=== PATIENT | male | born 1975 | race Two or more races ===

== ENCOUNTER 2017-07-24 00:05 | Inpatient (IN) | payer MEDICAID, OTHER ==
[~2017-07-24] VITALS: Ht 188 cm; Wt 87.2 kg
[2017-07-24 03:22] LABS: Basophils # (auto) 0.1 uL; Basophils % (auto) 0.7 % (0.0-2.0); Eosinophils # (auto) 0.1 uL; Eosinophils % (auto) 0.6 % (0.0-7.0); Hematocrit 46.2 % (41.0-53.0); Hemoglobin 15.7 g/dL (13.5-17.5); Lymphocytes # (auto) 1.1 uL; Lymphocytes % (auto) 11.2 % (10.0-50.0); Mean Corpuscular Hemoglobin 29.9 pg (28.0-32.0); Mean Corpuscular Hgb Conc. 33.9 g/dL (32.0-36.0); Mean Corpuscular Volume 88.2 fL (80.0-100.0); Monocytes # (auto) 0.8 uL; Monocytes % (auto) 8.3 % (0.0-12.0); Neutrophils # (auto) 7.5 uL; Neutrophils % (auto) 79.2 % (37.0-80.0); Platelet Count (auto) 254 10^3/uL (140-450); Red Blood Cells 5.24 10^6/uL (4.5-5.90); Red Cell Distribution Width 12.5 % (11.8-14.3); White Blood Cell 9.4 10^3/uL (4.4-10.8)
[2017-07-24] MEDS ORDERED: SODIUM CHLORIDE 0.9% 1,000 ML IV ONE ×2 (03:35→04:45)
[2017-07-24 03:38] LABS: Albumin 3.6 g/dL (3.4-5.0); BUN/Creatinine Ratio 16.8; Bilirubin, Total 1.1 mg/dL (0.2-1.0); Calcium 8.7 mg/dL (8.5-10.1); Potassium 4.2 mmol/L (3.5-5.1); Total Protein 8.1 g/dL (6.4-8.2)
[2017-07-24 03:43] LABS: Urine Bacteria NONE SEEN /hpf (None Seen); Urine Blood Negative /uL (Negative); Urine Specific Gravity 1.029 (1.001-1.035); Urine WBC <1 /hpf (0 - 3)
[2017-07-24] MEDS ORDERED: CLINDAMYCIN 900MG IV 50 ML IV ONE (03:45)
[2017-07-24] MEDS ORDERED: KETOROLAC TROMETH 30 MG/ML 1ML VIAL IV ONE (03:45)
[2017-07-24] MEDS ORDERED: InsuLIN REG 1unit/0.01ml Soln (100units/ml) IV ONE (03:45)
[2017-07-24 04:00] LABS: Alcohol, Urine < 3.0 mg/dL (0-5); Amphetamine Screen, Urine POSITIVE (NEGATIVE); Barbiturate Scree,Urine NEGATIVE (NEGATIVE); Benzodiazephine Screen, Urine NEGATIVE (NEGATIVE); Cannabinoid Screen, Urine POSITIVE (NEGATIVE); Cocaine Screen, Urine NEGATIVE (NEGATIVE); Opiate Scree,Urine NEGATIVE (NEGATIVE); Phencyclidine Screen, Urine NEGATIVE (NEGATIVE)
[2017-07-24 04:10] LABS: CRP High Sensitivity 10.9 mg/dL (< 0.3); Magnesium 2.3 mg/dL (1.6-2.6)
[2017-07-24 04:13] LABS: INR 0.87 (0.9-1.15); Partial Thromboplastin Time 29.6 sec (23.78-33.04); Prothrombin Time 9.4 sec (9.27-12.13)
[2017-07-24] MEDS ORDERED: ONDANSETRON HCL 4 MG/2 ML VIAL IV PRN (07:00)
[2017-07-24] MEDS ORDERED: VANCOMYCIN PER PHARMACY 0 MG IV SCH ×2 (07:00→13:45)
[2017-07-24] MEDS ORDERED: ACETAMINOPHEN 325 MG TAB PO PRN (07:00)
[2017-07-24] MEDS ORDERED: TEMAZEPAM 15 MG CAP PO PRN (07:00)
[2017-07-24] MEDS ORDERED: DEXTROSE (50%) 50ML SYRG IV PRN (07:00)
[2017-07-24] MEDS ORDERED: VANCOMYCIN 1,500 MG in D5W 5% 250 ML IV ONE (08:00)
[2017-07-24] MEDS: ACCU-CHEK COMFORT CURVE STRIP VI SCH ×4 (08:08→20:00)
[2017-07-24] MEDS: SODIUM CHLORIDE 0.9% 1,000 ML IV SCH ×2 (08:08→17:13)
[2017-07-24] MEDS: InsuLIN REG 1unit/0.01ml Soln (100units/ml) SC SCH ×4 (08:14→20:31)
[2017-07-24] MEDS ORDERED: cefTRIAXone 1GM/10ml IVPUSH 10 ML IV SCH (09:00)
[2017-07-24] MEDS: ENOXAPARIN SOD 40 MG/0.4 ML SYRINGE SC SCH (10:05)
[2017-07-24] MEDS: KETOROLAC TROMETH 30 MG/ML 1ML VIAL IV PRN ×2 (12:02→20:30)
[2017-07-24] MEDS ORDERED: LORazepam 2MG/ML-1ML VIAL IV PRN (12:30)
[2017-07-24] MEDS ORDERED: LABETALOL HCL 5 MG/ML ML 20ML VIAL IV PRN (12:30)
[2017-07-24] MEDS: PIPERACILLIN-TAZOB 3.375GM 100 ML IV SCH ×2 (13:04→18:46)
[2017-07-24] MEDS: CLINDAMYCIN 900MG IV 50 ML IV SCH ×2 (14:00→22:13)
[2017-07-24] MEDS: HYDROcodone-ACET 5/325MG TAB PO PRN (17:15)
[2017-07-24 17:21] VITALS: BP 136/92
[2017-07-24 18:23] VITALS: BP 137/77
[2017-07-24] MEDS: VANCOMYCIN 1,250 MG in D5W 5% 250 ML IV SCH (20:45)
[2017-07-24] MEDS ORDERED: VANCOMYCIN 1GM/250ML 250 ML IV SCH (21:00)
[2017-07-24 22:00] VITALS: BP 138/83
[2017-07-25] MEDS: ACCU-CHEK COMFORT CURVE STRIP VI SCH ×4 (00:35→17:39)
[2017-07-25] MEDS: InsuLIN REG 1unit/0.01ml Soln (100units/ml) SC SCH ×4 (00:36→17:40)
[2017-07-25] MEDS: PIPERACILLIN-TAZOB 3.375GM 100 ML IV SCH ×4 (00:36→18:18)
[2017-07-25] MEDS: HYDROcodone-ACET 5/325MG TAB PO PRN (00:37)
[2017-07-25] MEDS: SODIUM CHLORIDE 0.9% 1,000 ML IV SCH ×2 (03:00→13:00)
[2017-07-25] MEDS: KETOROLAC TROMETH 30 MG/ML 1ML VIAL IV PRN ×3 (04:14→17:41)
[2017-07-25 05:10] VITALS: BP 134/82
[2017-07-25 06:27] LABS: Basophils # (auto) 0 uL; Basophils % (auto) 0.4 % (0.0-2.0); Eosinophils # (auto) 0.1 uL; Hematocrit 42.8 % (41.0-53.0); Hemoglobin 14.6 g/dL (13.5-17.5); Lymphocytes # (auto) 0.9 uL; Lymphocytes % (auto) 12.1 % (10.0-50.0); Mean Corpuscular Hgb Conc. 34.1 g/dL (32.0-36.0); Mean Corpuscular Volume 87.8 fL (80.0-100.0); Monocytes # (auto) 0.6 uL; Monocytes % (auto) 8.4 % (0.0-12.0); Neutrophils # (auto) 5.9 uL; Neutrophils % (auto) 78.1 % (37.0-80.0); Platelet Count (auto) 263 10^3/uL (140-450); Red Blood Cells 4.87 10^6/uL (4.5-5.90); Red Cell Distribution Width 12.4 % (11.8-14.3); White Blood Cell 7.6 10^3/uL (4.4-10.8)
[2017-07-25 06:43] LABS: Albumin 2.8 g/dL (3.4-5.0); Calcium 8.1 mg/dL (8.5-10.1); Potassium 3.9 mmol/L (3.5-5.1)
[2017-07-25 06:44] LABS: BUN/Creatinine Ratio 24.6
[2017-07-25 06:47] LABS: Total Protein 6.7 g/dL (6.4-8.2)
[2017-07-25] MEDS: CLINDAMYCIN 900MG IV 50 ML IV SCH ×2 (06:48→15:51)
[2017-07-25] MEDS: HYDROcodone-ACET 10/325MG TAB PO PRN ×4 (08:00→18:50)
[2017-07-25 08:12] VITALS: BP 144/72
[2017-07-25] MEDS: VANCOMYCIN 1,250 MG in D5W 5% 250 ML IV SCH (09:26)
[2017-07-25] MEDS ORDERED: cefTRIAXone 1GM/10ml IVPUSH 10 ML IV SCH (11:00)
[2017-07-25] MEDS: ENOXAPARIN SOD 40 MG/0.4 ML SYRINGE SC SCH (11:29)
[2017-07-25 12:30] VITALS: BP 136/85
[2017-07-25 16:16] VITALS: BP 135/80
== END 2017-07-25 19:20 | disposition left against medical advice (07) | DRG 383 ==
LOC: ER 00:07 → OVERFLOW 00:08 → WEST WING 14:38 → TELE-WESTW 07-25 05:20
PROVIDERS: ADMIT Nurse Practitioner; ATTEND Internal Medicine
DX: L03.114 Cellulitis of left upper limb (principal); E11.65 Type 2 diabetes mellitus with hyperglycemia; M72.9 Fibroblastic disorder, unspecified; Z53.21 Procedure and treatment not carried out due to patient leaving prior to being seen by health care provider; F19.10 Other psychoactive substance abuse, uncomplicated; Z88.8 Allergy status to other drugs, medicaments and biological substances
CPT/HCPCS: 36415; 36600; 71045; 73130; 73200; 80053; 80307; 81001; 82010; 82805; 82962; 83036; 83605; 83735; 85025; 85610; 85730; 86141; 87040; 93005; 94761; 96361; 96365; 96375; J1815; J1885; J2405; J2543; J3490; J7060

== ENCOUNTER 2021-05-15 23:54 | Inpatient (IN) | payer OTHER ==
[~2021-05-15] VITALS: Ht 170.2 cm; Wt 103.5 kg
[2021-05-16 01:03] LABS: Eosinophils # (auto) 0 10 ^3/uL (0-0.8); Eosinophils % (auto) 0.1 % (0.0-7.0); Lymphocytes # (auto) 1.5 10 ^3/uL (0.4-5.4)
[2021-05-16 01:04] LABS: Basophils # (auto) 0 10 ^3/uL (0-0.2); Basophils % (auto) 0.2 % (0.0-2.0); Hematocrit 33.2 % (41.0-53.0); Lymphocytes % (auto) 6.7 % (10.0-50.0); Mean Corpuscular Hemoglobin 27.4 pg (28.0-32.0); Mean Corpuscular Volume 83.1 fL (80.0-100.0); Monocytes # (auto) 1.7 10 ^3/uL (0-1.3); Monocytes % (auto) 7.7 % (0.0-12.0); Neutrophils # (auto) 18.7 10 ^3/uL (1.6-8.6); Neutrophils % (auto) 85.3 % (37.0-80.0); Red Cell Distribution Width 13.1 % (11.8-14.3); White Blood Cell 21.9 10^3/uL (4.4-10.8)
[2021-05-16 01:16] LABS: Albumin 1.8 g/dL (3.4-5.0); Calcium 8.5 mg/dL (8.5-10.1)
[2021-05-16 01:18] LABS: BUN/Creatinine Ratio 30.1
[2021-05-16 01:20] LABS: Bilirubin, Total 0.4 mg/dL (0.2-1.0); Total Protein 8.2 g/dL (6.4-8.2)
[2021-05-16 01:30] LABS: INR 1.13 (0.9-1.15)
[2021-05-16] MEDS ORDERED: PIPERACILLIN-TAZOB 3.375GM 100 ML IV ONE (01:30)
[2021-05-16] MEDS ORDERED: MORPHINE SULFATE 4 MG/ML SYR/VIAL IV ONE (01:30)
[2021-05-16] MEDS ORDERED: SODIUM CHLORIDE 0.9% 1,000 ML IV ONE (01:30)
[2021-05-16] MEDS ORDERED: ONDANSETRON HCL 4 MG/2 ML VIAL IV ONE (02:00)
[2021-05-16] MEDS ORDERED: HYDROcodone-ACET 5/325MG TAB PO PRN (07:00)
[2021-05-16] MEDS ORDERED: ONDANSETRON HCL 4 MG/2 ML VIAL IV PRN (07:00)
[2021-05-16] MEDS ORDERED: DEXTROSE (50%) 50ML SYRG IV PRN ×2 (07:00→14:30)
[2021-05-16] MEDS ORDERED: VANCOMYCIN PER PHARMACY 0 MG IV SCH (07:00)
[2021-05-16] MEDS ORDERED: HYDROmorphone HCL 2 MG/ML VL IV ONE (07:30)
[2021-05-16 07:47] LABS: Hematocrit 27.9 % (41.0-53.0); Hemoglobin 9.8 g/dL (13.5-17.5)
[2021-05-16] MEDS: PIPERACILLIN-TAZOB 3.375GM 100 ML IV SCH ×3 (09:15→20:12)
[2021-05-16] MEDS: PANTOPRAZOLE 40 MG/10 ML VIAL INJ IV SCH (09:15)
[2021-05-16 09:54] VITALS: BP 123/71
[2021-05-16 10:11] VITALS: BP 123/71
[2021-05-16] MEDS ORDERED: InsuLIN REG 1unit/0.01ml Soln (100units/ml) SC SCH (12:00)
[2021-05-16] MEDS ORDERED: ACCU-CHEK COMFORT CURVE STRIP VI SCH (12:00)
[2021-05-16] MEDS: VANCOMYCIN 1GM/250ML 250 ML IV SCH ×2 (12:07→20:44)
[2021-05-16 12:49] VITALS: BP 112/67
[2021-05-16] MEDS ORDERED: INSULIN LANTUS (GLARGINE) 1 /0.01ml (100units/ml) SC ONE (14:30)
[2021-05-16] MEDS ORDERED: levoFLOXacin 750MG 150 ML IV ONE (14:30)
[2021-05-16] MEDS: SODIUM CHLORIDE 0.9% 1,000 ML IV SCH (14:31)
[2021-05-16 17:17] VITALS: BP 121/74
[2021-05-16] MEDS: SUCRALFATE 1 GM/10 ML ORAL SUSP PO SCH ×2 (17:19→22:55)
[2021-05-16] MEDS: ACCU-CHEK COMFORT CURVE STRIP VI SCH ×2 (18:14→23:00)
[2021-05-16] MEDS: InsuLIN REG 1unit/0.01ml Soln (100units/ml) SC SCH ×2 (18:20→23:00)
[2021-05-16 22:00] VITALS: BP 144/82
[2021-05-16] MEDS: INSULIN LANTUS (GLARGINE) 1 /0.01ml (100units/ml) SC SCH (22:59)
[2021-05-16 23:30] LABS: Urine Bacteria FEW /hpf (None Seen); Urine Blood 1+ /uL (Negative); Urine Specific Gravity 1.018 (1.001-1.035); Urine WBC 4 /hpf (0 - 3)
[2021-05-16 23:44] LABS: Alcohol, Urine < 3.0 mg/dL (0-10); Cannabinoid Screen, Urine POSITIVE (NEGATIVE)
[2021-05-16 23:52] LABS: Amphetamine Screen, Urine POSITIVE (NEGATIVE); Barbiturate Scree,Urine NEGATIVE (NEGATIVE); Benzodiazephine Screen, Urine NEGATIVE (NEGATIVE); Cocaine Screen, Urine NEGATIVE (NEGATIVE); Opiate Scree,Urine POSITIVE (NEGATIVE); Phencyclidine Screen, Urine NEGATIVE (NEGATIVE)
[2021-05-17] MEDS: PIPERACILLIN-TAZOB 3.375GM 100 ML IV SCH ×4 (02:11→20:08)
[2021-05-17] MEDS: SODIUM CHLORIDE 0.9% 1,000 ML IV SCH ×2 (03:50→20:00)
[2021-05-17 05:00] VITALS: BP 125/71
[2021-05-17] MEDS: InsuLIN REG 1unit/0.01ml Soln (100units/ml) SC SCH ×4 (05:20→22:52)
[2021-05-17] MEDS: ACCU-CHEK COMFORT CURVE STRIP VI SCH ×4 (05:20→22:52)
[2021-05-17 05:35] LABS: Basophils # (auto) 0 10 ^3/uL (0-0.2); Hemoglobin 9.5 g/dL (13.5-17.5); Mean Corpuscular Hemoglobin 27.9 pg (28.0-32.0)
[2021-05-17] MEDS: MORPHINE SULFATE 4 MG/ML SYR/VIAL IV PRN ×3 (05:38→20:09)
[2021-05-17 05:39] LABS: Basophils % (auto) 0.3 % (0.0-2.0); Eosinophils # (auto) 0.1 10 ^3/uL (0-0.8); Eosinophils % (auto) 0.4 % (0.0-7.0); Hematocrit 27.9 % (41.0-53.0); Lymphocytes # (auto) 1.3 10 ^3/uL (0.4-5.4); Lymphocytes % (auto) 7.9 % (10.0-50.0); Mean Corpuscular Hgb Conc. 33.9 g/dL (32.0-36.0); Mean Corpuscular Volume 82.2 fL (80.0-100.0); Monocytes # (auto) 1.4 10 ^3/uL (0-1.3); Monocytes % (auto) 8.4 % (0.0-12.0); Neutrophils # (auto) 13.7 10 ^3/uL (1.6-8.6); Red Cell Distribution Width 13.9 % (11.8-14.3); White Blood Cell 16.5 10^3/uL (4.4-10.8)
[2021-05-17] MEDS: SUCRALFATE 1 GM/10 ML ORAL SUSP PO SCH ×4 (05:40→22:51)
[2021-05-17 06:01] LABS: Potassium 3.9 mmol/L (3.5-5.1)
[2021-05-17 06:06] LABS: Albumin 1.4 g/dL (3.4-5.0); BUN/Creatinine Ratio 30.9; Calcium 8.3 mg/dL (8.5-10.1)
[2021-05-17 06:09] LABS: Bilirubin, Total 0.4 mg/dL (0.2-1.0); Total Protein 6.9 g/dL (6.4-8.2)
[2021-05-17] MEDS: VANCOMYCIN 1GM/250ML 250 ML IV SCH ×2 (06:25→20:14)
[2021-05-17 09:00] VITALS: BP 153/84
[2021-05-17] MEDS: PANTOPRAZOLE 40 MG/10 ML VIAL INJ IV SCH (10:00)
[2021-05-17] MEDS: INSULIN LANTUS (GLARGINE) 1 /0.01ml (100units/ml) SC SCH ×2 (10:00→22:51)
[2021-05-17] MEDS: levoFLOXacin 750MG 150 ML IV SCH (10:00)
[2021-05-17] MEDS ORDERED: ceFAZolin 1GM/50ML 100 ML IV ONE (10:08)
[2021-05-17] MEDS ORDERED: ceFAZolin 1GM VL ONE (10:21)
[2021-05-17] MEDS ORDERED: ACCU-CHEK COMFORT CURVE STRIP VI ONE (10:30)
[2021-05-17] MEDS ORDERED: METOCLOPRAMIDE HCL 5MG/ml INJ 2ml VIAL IV PRN (10:30)
[2021-05-17] MEDS ORDERED: HYDROmorphone HCL 2 MG/ML VL IV PRN (10:30)
[2021-05-17] MEDS ORDERED: MORPHINE SULFATE 4 MG/ML SYR/VIAL IV PRN (10:30)
[2021-05-17] MEDS ORDERED: fentaNYL CITRATE 100 MCG/2 ML VL ONE (10:38)
[2021-05-17] MEDS ORDERED: ONDANSETRON HCL 4 MG/2 ML VIAL ONE (10:39)
[2021-05-17] MEDS ORDERED: PROPOFOL 10 MG/ML 20 ML IV ONE (10:39)
[2021-05-17] MEDS ORDERED: SODIUM CHLORIDE LOCK 10 ML ONE (10:39)
[2021-05-17] MEDS ORDERED: MIDAZOLAM HCL 2MG/2ML 2ml VIAL (1mg/ml) ONE (10:39)
[2021-05-17] MEDS ORDERED: ROPIVACAINE 0.5% (5MG/ML) 20ML AMPULE IJ ONE (12:03)
[2021-05-17 16:30] VITALS: BP 152/87
[2021-05-17 22:00] VITALS: BP 114/68
[2021-05-18] MEDS: PIPERACILLIN-TAZOB 3.375GM 100 ML IV SCH ×4 (04:03→20:29)
[2021-05-18] MEDS: SODIUM CHLORIDE 0.9% 1,000 ML IV SCH ×2 (04:03→19:50)
[2021-05-18 05:00] VITALS: BP 121/79
[2021-05-18 05:41] LABS: Basophils # (auto) 0.1 10 ^3/uL (0-0.2); Eosinophils # (auto) 0 10 ^3/uL (0-0.8); Mean Corpuscular Hemoglobin 28.1 pg (28.0-32.0)
[2021-05-18 05:44] LABS: Basophils % (auto) 0.3 % (0.0-2.0); Eosinophils % (auto) 0.3 % (0.0-7.0); Hematocrit 26.3 % (41.0-53.0); Lymphocytes # (auto) 1.3 10 ^3/uL (0.4-5.4); Mean Corpuscular Hgb Conc. 34.1 g/dL (32.0-36.0); Mean Corpuscular Volume 82.4 fL (80.0-100.0); Monocytes # (auto) 1.4 10 ^3/uL (0-1.3); Monocytes % (auto) 8.8 % (0.0-12.0); Neutrophils # (auto) 13.6 10 ^3/uL (1.6-8.6); Neutrophils % (auto) 82.6 % (37.0-80.0); Nucleated Red Blood Cells % 0.4 %; Red Cell Distribution Width 13.2 % (11.8-14.3); White Blood Cell 16.4 10^3/uL (4.4-10.8)
[2021-05-18] MEDS: VANCOMYCIN 1GM/250ML 250 ML IV SCH ×2 (06:05→16:41)
[2021-05-18] MEDS: SUCRALFATE 1 GM/10 ML ORAL SUSP PO SCH ×4 (06:06→23:02)
[2021-05-18] MEDS: ACCU-CHEK COMFORT CURVE STRIP VI SCH ×4 (06:06→23:02)
[2021-05-18] MEDS: InsuLIN REG 1unit/0.01ml Soln (100units/ml) SC SCH ×4 (06:09→23:08)
[2021-05-18] MEDS: MORPHINE SULFATE 4 MG/ML SYR/VIAL IV PRN ×3 (06:11→23:09)
[2021-05-18 09:00] VITALS: BP 127/74
[2021-05-18] MEDS: PANTOPRAZOLE 40 MG/10 ML VIAL INJ IV SCH (09:27)
[2021-05-18] MEDS: levoFLOXacin 750MG 150 ML IV SCH (09:28)
[2021-05-18] MEDS: INSULIN LANTUS (GLARGINE) 1 /0.01ml (100units/ml) SC SCH ×2 (09:37→23:07)
[2021-05-18 13:00] VITALS: BP 118/65
[2021-05-18 17:00] VITALS: BP 132/71
[2021-05-18 22:00] VITALS: BP 140/76
[2021-05-19] MEDS: VANCOMYCIN 1GM/250ML 250 ML IV SCH ×3 (00:57→22:09)
[2021-05-19] MEDS: PIPERACILLIN-TAZOB 3.375GM 100 ML IV SCH (02:10)
[2021-05-19] MEDS: ACCU-CHEK COMFORT CURVE STRIP VI SCH ×3 (05:21→18:15)
[2021-05-19] MEDS: InsuLIN REG 1unit/0.01ml Soln (100units/ml) SC SCH ×3 (05:21→18:15)
[2021-05-19] MEDS: SUCRALFATE 1 GM/10 ML ORAL SUSP PO SCH ×4 (05:37→22:10)
[2021-05-19 06:12] LABS: Basophils # (auto) 0.1 10 ^3/uL (0-0.2); Eosinophils # (auto) 0.1 10 ^3/uL (0-0.8); Hemoglobin 8.1 g/dL (13.5-17.5); Mean Corpuscular Hemoglobin 28.1 pg (28.0-32.0); Neutrophils % (auto) 81.6 % (37.0-80.0); Red Blood Cells 2.89 10^6/uL (4.5-5.90)
[2021-05-19 06:15] LABS: Basophils % (auto) 0.5 % (0.0-2.0); Eosinophils % (auto) 0.9 % (0.0-7.0); Hematocrit 23.8 % (41.0-53.0); Lymphocytes # (auto) 1.1 10 ^3/uL (0.4-5.4); Mean Corpuscular Volume 82.6 fL (80.0-100.0); Neutrophils # (auto) 10.4 10 ^3/uL (1.6-8.6); Red Cell Distribution Width 13.4 % (11.8-14.3); White Blood Cell 12.7 10^3/uL (4.4-10.8)
[2021-05-19 06:22] LABS: BUN/Creatinine Ratio 18.1; Calcium 7.7 mg/dL (8.5-10.1); Magnesium 2.4 mg/dL (1.6-2.6); Potassium 3.9 mmol/L (3.5-5.1)
[2021-05-19 08:15] VITALS: BP 133/77
[2021-05-19] MEDS: SODIUM CHLORIDE 0.9% 1,000 ML IV SCH (09:30)
[2021-05-19] MEDS: PANTOPRAZOLE 40 MG/10 ML VIAL INJ IV SCH (09:30)
[2021-05-19] MEDS: INSULIN LANTUS (GLARGINE) 1 /0.01ml (100units/ml) SC SCH ×2 (10:00→23:58)
[2021-05-19] MEDS: MORPHINE SULFATE 4 MG/ML SYR/VIAL IV PRN ×2 (11:30→22:11)
[2021-05-19] MEDS: AMPICILLIN & SULBACTAM SODIUM 3 GM in SODIUM CHL 0.9% 100 ML IV SCH ×3 (11:36→19:55)
[2021-05-19 12:10] VITALS: BP 122/69
[2021-05-19] MEDS ORDERED: SODIUM CHLORIDE LOCK 10 ML ONE (12:40)
[2021-05-19] MEDS ORDERED: LIDOCAINE VISCOUS 2% 15ML UD ONE (12:40)
[2021-05-19] MEDS: MIDAZOLAM HCL 5 MG/ML-1ML VIAL ONE ×2 (14:37→14:40)
[2021-05-19] MEDS: diphenhdrAMINE HCL 50 MG/1 ML VL ONE ×2 (14:37→14:40)
[2021-05-19] MEDS: fentaNYL CITRATE 100 MCG/2 ML VL ONE ×2 (14:37→14:40)
[2021-05-19 16:15] VITALS: BP 122/74
[2021-05-19 21:33] VITALS: BP 134/79
[2021-05-20] MEDS: InsuLIN REG 1unit/0.01ml Soln (100units/ml) SC SCH ×4 (00:05→18:37)
[2021-05-20] MEDS: AMPICILLIN & SULBACTAM SODIUM 3 GM in SODIUM CHL 0.9% 100 ML IV SCH ×4 (02:17→17:39)
[2021-05-20 05:00] VITALS: BP 127/74
[2021-05-20] MEDS: ACCU-CHEK COMFORT CURVE STRIP VI SCH ×4 (06:14→18:00)
[2021-05-20] MEDS: SUCRALFATE 1 GM/10 ML ORAL SUSP PO SCH ×3 (06:15→17:39)
[2021-05-20] MEDS: MORPHINE SULFATE 4 MG/ML SYR/VIAL IV PRN ×3 (06:43→17:43)
[2021-05-20 08:00] VITALS: BP 147/79
[2021-05-20] MEDS: VANCOMYCIN 1GM/250ML 250 ML IV SCH ×2 (09:02→18:36)
[2021-05-20] MEDS: PANTOPRAZOLE 40 MG/10 ML VIAL INJ IV SCH (10:00)
[2021-05-20] MEDS: INSULIN LANTUS (GLARGINE) 1 /0.01ml (100units/ml) SC SCH (10:37)
[2021-05-20] MEDS: SODIUM CHLORIDE 0.9% 1,000 ML IV SCH ×2 (11:50)
[2021-05-20 12:10] VITALS: BP 133/75
[2021-05-20 16:25] VITALS: BP 133/85
[2021-05-20 22:00] VITALS: BP 148/80
[2021-05-21] MEDS: MORPHINE SULFATE 4 MG/ML SYR/VIAL IV PRN ×3 (00:50→21:55)
[2021-05-21] MEDS: ACCU-CHEK COMFORT CURVE STRIP VI SCH ×5 (00:54→23:17)
[2021-05-21] MEDS: SUCRALFATE 1 GM/10 ML ORAL SUSP PO SCH ×5 (00:54→21:20)
[2021-05-21] MEDS: SODIUM CHLORIDE 0.9% 1,000 ML IV SCH ×3 (00:57→20:00)
[2021-05-21] MEDS: INSULIN LANTUS (GLARGINE) 1 /0.01ml (100units/ml) SC SCH ×3 (01:01→21:20)
[2021-05-21] MEDS: AMPICILLIN & SULBACTAM SODIUM 3 GM in SODIUM CHL 0.9% 100 ML IV SCH ×4 (03:13→20:03)
[2021-05-21 05:00] VITALS: BP 135/79
[2021-05-21] MEDS: VANCOMYCIN 1GM/250ML 250 ML IV SCH ×2 (05:51→17:06)
[2021-05-21] MEDS: InsuLIN REG 1unit/0.01ml Soln (100units/ml) SC SCH ×5 (05:55→23:29)
[2021-05-21] MEDS: PANTOPRAZOLE 40 MG/10 ML VIAL INJ IV SCH (11:17)
[2021-05-21 17:00] VITALS: BP 152/88
[2021-05-21 22:00] VITALS: BP 127/82
[2021-05-22] MEDS: AMPICILLIN & SULBACTAM SODIUM 3 GM in SODIUM CHL 0.9% 100 ML IV SCH ×3 (01:05→14:39)
[2021-05-22] MEDS: MORPHINE SULFATE 4 MG/ML SYR/VIAL IV PRN ×4 (03:45→20:53)
[2021-05-22] MEDS: VANCOMYCIN 1GM/250ML 250 ML IV SCH ×2 (04:52→17:35)
[2021-05-22 05:00] VITALS: BP 144/76
[2021-05-22] MEDS: ACCU-CHEK COMFORT CURVE STRIP VI SCH ×4 (05:23→23:55)
[2021-05-22] MEDS: SUCRALFATE 1 GM/10 ML ORAL SUSP PO SCH ×4 (05:23→20:53)
[2021-05-22] MEDS: InsuLIN REG 1unit/0.01ml Soln (100units/ml) SC SCH ×4 (05:23→23:19)
[2021-05-22 09:00] VITALS: BP 156/86
[2021-05-22] MEDS: PANTOPRAZOLE 40 MG/10 ML VIAL INJ IV SCH (09:57)
[2021-05-22] MEDS: INSULIN LANTUS (GLARGINE) 1 /0.01ml (100units/ml) SC SCH ×2 (09:58→20:54)
[2021-05-22 10:02] LABS: Basophils # (auto) 0.1 10 ^3/uL (0-0.2); Eosinophils # (auto) 0.1 10 ^3/uL (0-0.8); Hemoglobin 8.6 g/dL (13.5-17.5); Lymphocytes # (auto) 0.9 10 ^3/uL (0.4-5.4)
[2021-05-22 10:04] LABS: Basophils % (auto) 0.5 % (0.0-2.0); Eosinophils % (auto) 0.6 % (0.0-7.0); Hematocrit 25.8 % (41.0-53.0); Lymphocytes % (auto) 7.8 % (10.0-50.0); Mean Corpuscular Hgb Conc. 33.3 g/dL (32.0-36.0); Mean Corpuscular Volume 84.1 fL (80.0-100.0); Monocytes # (auto) 0.7 10 ^3/uL (0-1.3); Monocytes % (auto) 6.2 % (0.0-12.0); Neutrophils # (auto) 10.2 10 ^3/uL (1.6-8.6); Neutrophils % (auto) 84.9 % (37.0-80.0); Red Blood Cells 3.07 10^6/uL (4.5-5.90); Red Cell Distribution Width 13.9 % (11.8-14.3); White Blood Cell 12.1 10^3/uL (4.4-10.8)
[2021-05-22 13:00] VITALS: BP 126/87
[2021-05-22 16:42] LABS: INR 1.11 (0.9-1.15)
[2021-05-22] MEDS ORDERED: FLUCONAZOLE 100 MG TAB PO ONE (16:45)
[2021-05-22 17:00] VITALS: BP 157/88
[2021-05-22] MEDS: FERROUS SULFATE 325mg EC TAB PO SCH (17:35)
[2021-05-22] MEDS: PANTOPRAZOLE 40 MG TAB PO SCH (20:53)
[2021-05-22] MEDS: metroNIDAZOLE 500 MG TAB PO SCH (20:53)
[2021-05-22 22:00] VITALS: BP 155/84
[2021-05-22 23:01] LABS: Eosinophils # (auto) 0.2 10 ^3/uL (0-0.8); Hemoglobin 8.6 g/dL (13.5-17.5); Red Cell Distribution Width 13.9 % (11.8-14.3)
[2021-05-22 23:09] LABS: Basophils # (auto) 0.1 10 ^3/uL (0-0.2); Basophils % (auto) 1.4 % (0.0-2.0); Eosinophils % (auto) 1.6 % (0.0-7.0); Hematocrit 25.6 % (41.0-53.0); Lymphocytes # (auto) 1.1 10 ^3/uL (0.4-5.4); Lymphocytes % (auto) 11.4 % (10.0-50.0); Mean Corpuscular Hemoglobin 27.9 pg (28.0-32.0); Mean Corpuscular Hgb Conc. 33.5 g/dL (32.0-36.0); Mean Corpuscular Volume 83.4 fL (80.0-100.0); Monocytes # (auto) 0.7 10 ^3/uL (0-1.3); Monocytes % (auto) 7.6 % (0.0-12.0); Neutrophils # (auto) 7.7 10 ^3/uL (1.6-8.6); Red Blood Cells 3.07 10^6/uL (4.5-5.90); White Blood Cell 9.8 10^3/uL (4.4-10.8)
[2021-05-22 23:22] LABS: Albumin 1.3 g/dL (3.4-5.0); BUN/Creatinine Ratio 13.6; Calcium 7.7 mg/dL (8.5-10.1); Potassium 4.2 mmol/L (3.5-5.1)
[2021-05-22 23:25] LABS: Bilirubin, Total 0.2 mg/dL (0.2-1.0); Total Protein 6.4 g/dL (6.4-8.2)
[2021-05-23] MEDS: VANCOMYCIN 1GM/250ML 250 ML IV SCH ×2 (02:35→13:00)
[2021-05-23] MEDS: MORPHINE SULFATE 4 MG/ML SYR/VIAL IV PRN ×2 (02:43→10:40)
[2021-05-23 04:35] VITALS: BP 139/78
[2021-05-23] MEDS: SUCRALFATE 1 GM/10 ML ORAL SUSP PO SCH ×3 (05:42→17:28)
[2021-05-23] MEDS: ACCU-CHEK COMFORT CURVE STRIP VI SCH ×3 (05:42→17:20)
[2021-05-23] MEDS: InsuLIN REG 1unit/0.01ml Soln (100units/ml) SC SCH ×3 (05:47→18:00)
[2021-05-23 08:45] VITALS: BP 158/87
[2021-05-23] MEDS ORDERED: FLUCONAZOLE 100 MG TAB PO SCH (10:00)
[2021-05-23] MEDS: FERROUS SULFATE 325mg EC TAB PO SCH ×2 (10:40→17:28)
[2021-05-23] MEDS: PANTOPRAZOLE 40 MG TAB PO SCH (10:41)
[2021-05-23] MEDS: metroNIDAZOLE 500 MG TAB PO SCH (10:42)
[2021-05-23] MEDS: INSULIN LANTUS (GLARGINE) 1 /0.01ml (100units/ml) SC SCH (11:48)
[2021-05-23] MEDS ORDERED: LOSARTAN POTASSIUM 25 MG TAB PO ONE (12:15)
[2021-05-23 12:40] VITALS: BP 157/77
[2021-05-23] MEDS ORDERED: LIDOCAINE 1% (LOCAL ANESTH.) PF 5ml SDV ID ONE (13:00)
[2021-05-23 16:37] VITALS: BP 156/100
[2021-05-23] MEDS ORDERED: SODIUM CHLOR 0.9% PF (SALINE LOCK) 10ML VIAL/SYR IV SCH (22:00)
[2021-05-24] MEDS ORDERED: LOSARTAN POTASSIUM 25 MG TAB PO SCH (10:00)
== END 2021-05-23 19:43 | DRG 710 ==
LOC: EDBD 23:54 → ER 23:57 → OVERFLOW 05-16 06:50 → WEST WING 05-16 08:45
PROVIDERS: ADMIT Nurse Practitioner; ATTEND Internal Medicine
PROC: 0Y9N0ZZ Drainage of Left Foot, Open Approach (ICD-10-PCS; 2021-05-17)
PROC: 0Y6Q0Z0 Detachment at Left 1st Toe, Complete, Open Approach (ICD-10-PCS; principal; 2021-05-17 11:45)
PROC: 0QBP0ZZ Excision of Left Metatarsal, Open Approach (ICD-10-PCS; 2021-05-17 11:45)
PROC: 0DB98ZX Excision of Duodenum, Via Natural or Artificial Opening Endoscopic, Diagnostic (ICD-10-PCS; 2021-05-19)
PROC: 0DB68ZX Excision of Stomach, Via Natural or Artificial Opening Endoscopic, Diagnostic (ICD-10-PCS; 2021-05-19)
PROC: 0DB38ZX Excision of Lower Esophagus, Via Natural or Artificial Opening Endoscopic, Diagnostic (ICD-10-PCS; 2021-05-19)
DX: A41.9 Sepsis, unspecified organism (principal); K22.11 Ulcer of esophagus with bleeding; E43 Unspecified severe protein-calorie malnutrition; K26.4 Chronic or unspecified duodenal ulcer with hemorrhage; K29.71 Gastritis, unspecified, with bleeding; E11.52 Type 2 diabetes mellitus with diabetic peripheral angiopathy with gangrene; E11.69 Type 2 diabetes mellitus with other specified complication; K56.7 Ileus, unspecified; L03.116 Cellulitis of left lower limb; D64.9 Anemia, unspecified; E11.65 Type 2 diabetes mellitus with hyperglycemia; M86.8X7 Other osteomyelitis, ankle and foot; F12.90 Cannabis use, unspecified, uncomplicated; F17.210 Nicotine dependence, cigarettes, uncomplicated; Z20.822 Contact with and (suspected) exposure to COVID-19; I10 Essential (primary) hypertension; K29.81 Duodenitis with bleeding; K44.9 Diaphragmatic hernia without obstruction or gangrene; L02.612 Cutaneous abscess of left foot; Z86.14 Personal history of Methicillin resistant Staphylococcus aureus infection; Z68.31 Body mass index [BMI] 31.0-31.9, adult; Z88.8 Allergy status to other drugs, medicaments and biological substances; Z89.412 Acquired absence of left great toe; Z91.19 Patient's noncompliance with other medical treatment and regimen; Z71.6 Tobacco abuse counseling
CPT/HCPCS: 36415; 36569; 43239; 71045; 73700; 74176; 78315; 80048; 80053; 80202; 80307; 81001; 82565; 82962; 83036; 83605; 83690; 83735; 85014; 85018; 85025; 85610; 86850; 86900; 86901; 87040; 87070; 87075; 87077; 87086; 87186; 87205; 93005; 93925; 96361; 96365; 96375; 97163; C9113; G0378; J0690; J1815; J1956; J2250; J2405; J2543; J2704

== ENCOUNTER 2021-06-28 14:46 | Emergency (ER) | payer MEDICAID, OTHER ==
[~2021-06-28] VITALS: Ht 188 cm; Wt 99.8 kg
[2021-06-28 15:32] VITALS: BP 142/75
== END 2021-06-28 17:41 | disposition left against medical advice (07) ==
LOC: ER 14:46 → EDBD 14:46 → ER 17:41
DX: M79.672 Pain in left foot (principal); Z53.21 Procedure and treatment not carried out due to patient leaving prior to being seen by health care provider

== ENCOUNTER 2021-06-29 18:33 | Emergency (ER) | payer MEDICAID ==
[~2021-06-29] VITALS: Ht 180.3 cm; Wt 90.7 kg
[2021-06-29 18:33] VITALS: BP 167/88
== END 2021-06-29 21:54 | disposition left against medical advice (07) ==
LOC: EDBD 18:33 → EDUNIT# 18:33 → ER 18:33
DX: M79.605 Pain in left leg (principal); Z53.21 Procedure and treatment not carried out due to patient leaving prior to being seen by health care provider

== ENCOUNTER 2021-06-30 05:33 | Inpatient (IN) | payer MEDICAID ==
[~2021-06-30] VITALS: Ht 188 cm; Wt 100.8 kg
[2021-06-30 07:19] LABS: Hematocrit 30.9 % (41.0-53.0); Hemoglobin 10.6 g/dL (13.5-17.5); Mean Corpuscular Hemoglobin 28.1 pg (28.0-32.0); Mean Corpuscular Hgb Conc. 34.4 g/dL (32.0-36.0); Mean Corpuscular Volume 81.7 fL (80.0-100.0); Red Blood Cells 3.78 10^6/uL (4.5-5.90); Red Cell Distribution Width 18.4 % (11.8-14.3); White Blood Cell 6.2 10^3/uL (4.4-10.8)
[2021-06-30] MEDS ORDERED: PIPERACILLIN-TAZOB 3.375GM 100 ML IV ONE (07:30)
[2021-06-30] MEDS ORDERED: CLINDAMYCIN 900MG IV 50 ML IV ONE (07:30)
[2021-06-30 07:37] LABS: Albumin 1.8 g/dL (3.4-5.0); Calcium 8.2 mg/dL (8.5-10.1); Potassium 3.5 mmol/L (3.5-5.1)
[2021-06-30] MEDS ORDERED: FLUCONAZOLE 200MG/100ML 100 ML IV ONE (07:45)
[2021-06-30 07:51] LABS: BUN/Creatinine Ratio 19.4; CRP High Sensitivity 2.19 mg/dL (< 0.3); Total Protein 6.2 g/dL (6.4-8.2)
[2021-06-30 07:53] LABS: INR 1.38 (0.9-1.15); Partial Thromboplastin Time 32.2 sec (23.6-33.0)
[2021-06-30 07:59] LABS: Band Neutrophils % (manual) 0; Basophils % (manual) 0 (0.0-2.0); Blast Cells 0; Metamyelocytes % 0; Myelocytes % 0; Promyelocytes % 0; Reactive Lymphocytes 0
[2021-06-30] MEDS ORDERED: LACTATED RINGER'S 1,000 ML IV ONE (09:45)
[2021-06-30] MEDS ORDERED: ENOXAPARIN SOD 100 MG/1 ML SYRINGE SC ONE (09:45)
[2021-06-30 12:15] LABS: Eosinophils % (manual) 7 (0-7); Lymphocytes % (manual) 37 (10.0-50.0); Monocytes % (manual) 8 (0-12)
[2021-06-30] MEDS ORDERED: ONDANSETRON HCL 4 MG/2 ML VIAL IV PRN (16:00)
[2021-06-30] MEDS ORDERED: ACETAMINOPHEN 500 MG TAB PO PRN (16:00)
[2021-06-30] MEDS ORDERED: DEXTROSE (50%) 50ML SYRG IV PRN (16:00)
[2021-06-30] MEDS ORDERED: MORPHINE SULFATE INJ 2 MG/ml SYRG IV PRN (16:00)
[2021-06-30] MEDS ORDERED: NITROGLYCERIN 0.4 MG SL TAB SL PRN (16:00)
[2021-06-30] MEDS: SODIUM CHLORIDE 0.9% 1,000 ML IV SCH (16:15)
[2021-06-30] MEDS: InsuLIN REG 1unit/0.01ml Soln (100units/ml) SC SCH (18:00)
[2021-06-30] MEDS: ACCU-CHEK COMFORT CURVE STRIP VI SCH (19:14)
[2021-06-30 22:00] VITALS: BP 173/99
[2021-06-30] MEDS: MORPHINE SULFATE 4 MG/ML SYR/VIAL IV PRN (22:00)
[2021-06-30] MEDS: PANTOPRAZOLE 40 MG TAB PO SCH (22:00)
[2021-06-30] MEDS: PIPERACILLIN-TAZOB 3.375GM 100 ML IV SCH (22:52)
[2021-07-01] MEDS: PIPERACILLIN-TAZOB 3.375GM 100 ML IV SCH ×3 (00:17→14:39)
[2021-07-01] MEDS: SODIUM CHLORIDE 0.9% 1,000 ML IV SCH ×3 (03:14→22:15)
[2021-07-01] MEDS: MORPHINE SULFATE 4 MG/ML SYR/VIAL IV PRN ×3 (03:45→16:32)
[2021-07-01 05:00] VITALS: BP 150/81
[2021-07-01] MEDS: InsuLIN REG 1unit/0.01ml Soln (100units/ml) SC SCH ×5 (05:18→23:36)
[2021-07-01] MEDS: ACCU-CHEK COMFORT CURVE STRIP VI SCH ×5 (05:18→23:36)
[2021-07-01 07:21] LABS: Potassium 3.3 mmol/L (3.5-5.1)
[2021-07-01 07:32] LABS: Amphetamine Screen, Urine NEGATIVE (NEGATIVE); Barbiturate Scree,Urine NEGATIVE (NEGATIVE); Benzodiazephine Screen, Urine NEGATIVE (NEGATIVE); Cannabinoid Screen, Urine POSITIVE (NEGATIVE); Cocaine Screen, Urine NEGATIVE (NEGATIVE); Phencyclidine Screen, Urine NEGATIVE (NEGATIVE)
[2021-07-01 07:39] LABS: Opiate Scree,Urine NEGATIVE (NEGATIVE)
[2021-07-01 07:42] LABS: Albumin 1.6 g/dL (3.4-5.0); BUN/Creatinine Ratio 18.9; Bilirubin, Total 11.4 mg/dL (0.2-1.0); CRP High Sensitivity 2.75 mg/dL (< 0.3); Calcium 7.8 mg/dL (8.5-10.1); Total Protein 5.5 g/dL (6.4-8.2)
[2021-07-01 07:43] LABS: Hematocrit 27.6 % (41.0-53.0); Hemoglobin 9.6 g/dL (13.5-17.5); Mean Corpuscular Hemoglobin 27.9 pg (28.0-32.0); Mean Corpuscular Hgb Conc. 34.8 g/dL (32.0-36.0); Mean Corpuscular Volume 80.3 fL (80.0-100.0); Red Blood Cells 3.44 10^6/uL (4.5-5.90); Red Cell Distribution Width 18.4 % (11.8-14.3); White Blood Cell 5.6 10^3/uL (4.4-10.8)
[2021-07-01 07:55] LABS: Basophils % (manual) 0 (0.0-2.0); Blast Cells 0; Metamyelocytes % 0; Myelocytes % 0; Promyelocytes % 0; Reactive Lymphocytes 0
[2021-07-01 09:00] VITALS: BP 168/93
[2021-07-01] MEDS: ENOXAPARIN SOD 40 MG/0.4 ML SYRINGE SC SCH (09:01)
[2021-07-01] MEDS: PANTOPRAZOLE 40 MG TAB PO SCH ×2 (09:01→21:57)
[2021-07-01 09:14] LABS: Band Neutrophils % (manual) 5; Eosinophils % (manual) 10 (0-7); Lymphocytes % (manual) 14 (10.0-50.0); Monocytes % (manual) 15 (0-12)
[2021-07-01] MEDS ORDERED: IOHEXOL 300 MG/ML 100ML BOTTLE IJ ONE ×2 (12:37→14:59)
[2021-07-01 13:12] VITALS: BP 160/90
[2021-07-01] MEDS ORDERED: LIDOCAINE 1% (LOCAL ANESTH.) PF 5ml SDV ID ONE (15:00)
[2021-07-01] MEDS: LACTULOSE 20Gm/30ML SOLN PO PRN (16:33)
[2021-07-01 17:05] VITALS: BP 175/98
[2021-07-01] MEDS ORDERED: cloNIDine HCL 0.1 MG TAB PO ONE (17:45)
[2021-07-01] MEDS: cloNIDine HCL 0.1 MG TAB PO SCH (21:56)
[2021-07-01] MEDS: MORPHINE SULFATE INJ 2 MG/ml SYRG IV PRN (21:58)
[2021-07-01 22:00] VITALS: BP 171/104
[2021-07-01] MEDS: SODIUM CHLOR 0.9% PF (SALINE LOCK) 10ML VIAL/SYR IV SCH (22:02)
[2021-07-02] MEDS ORDERED: ONDA-144 PO (00:31)
[2021-07-02] MEDS ORDERED: INSU1INJ19 SC (00:32)
[2021-07-02] MEDS ORDERED: ASPI1CHW5 PO (00:34)
[2021-07-02] MEDS ORDERED: LOSA-69 PO (00:36)
[2021-07-02] MEDS ORDERED: AMLO-496 PO (00:36)
[2021-07-02] MEDS ORDERED: CARV12.544 PO (00:36)
[2021-07-02] MEDS: MORPHINE SULFATE 4 MG/ML SYR/VIAL IV PRN ×3 (02:35→14:41)
[2021-07-02 05:00] VITALS: BP 126/73
[2021-07-02] MEDS: InsuLIN REG 1unit/0.01ml Soln (100units/ml) SC SCH ×3 (06:00→17:35)
[2021-07-02 06:11] LABS: Potassium 3.5 mmol/L (3.5-5.1)
[2021-07-02] MEDS: ACCU-CHEK COMFORT CURVE STRIP VI SCH ×3 (06:16→17:35)
[2021-07-02 06:32] LABS: Albumin 1.5 g/dL (3.4-5.0); BUN/Creatinine Ratio 14.1; Bilirubin, Total 12.5 mg/dL (0.2-1.0); Calcium 7.7 mg/dL (8.5-10.1); Total Protein 5.2 g/dL (6.4-8.2)
[2021-07-02 09:00] VITALS: BP 114/63
[2021-07-02] MEDS: SODIUM CHLOR 0.9% PF (SALINE LOCK) 10ML VIAL/SYR IV SCH ×2 (09:21→23:03)
[2021-07-02] MEDS: cloNIDine HCL 0.1 MG TAB PO SCH ×2 (09:21→23:04)
[2021-07-02] MEDS: PANTOPRAZOLE 40 MG TAB PO SCH ×2 (09:21→23:05)
[2021-07-02] MEDS: ENOXAPARIN SOD 40 MG/0.4 ML SYRINGE SC SCH (09:22)
[2021-07-02] MEDS: SODIUM CHLORIDE 0.9% 1,000 ML IV SCH ×2 (09:22→13:06)
[2021-07-02 13:06] VITALS: BP 113/64
[2021-07-02 17:14] VITALS: BP 109/64
[2021-07-02] MEDS: MORPHINE SULFATE INJ 2 MG/ml SYRG IV PRN (20:25)
[2021-07-02 22:00] VITALS: BP 124/71
[2021-07-02] MEDS: APIXABAN 5 MG TAB PO SCH (23:05)
[2021-07-02] MEDS: LACTULOSE 20Gm/30ML SOLN PO PRN (23:05)
[2021-07-03] MEDS: ACCU-CHEK COMFORT CURVE STRIP VI SCH ×4 (00:03→17:05)
[2021-07-03] MEDS: SODIUM CHLORIDE 0.9% 1,000 ML IV SCH ×3 (00:33→10:00)
[2021-07-03] MEDS: InsuLIN REG 1unit/0.01ml Soln (100units/ml) SC SCH ×4 (00:38→17:57)
[2021-07-03] MEDS: MORPHINE SULFATE 4 MG/ML SYR/VIAL IV PRN ×4 (00:46→23:05)
[2021-07-03 05:00] VITALS: BP 140/79
[2021-07-03 06:13] LABS: Hematocrit 26.5 % (41.0-53.0); Hemoglobin 9.4 g/dL (13.5-17.5); Mean Corpuscular Hemoglobin 28.3 pg (28.0-32.0); Mean Corpuscular Hgb Conc. 35.5 g/dL (32.0-36.0); Mean Corpuscular Volume 79.7 fL (80.0-100.0); Red Blood Cells 3.33 10^6/uL (4.5-5.90); Red Cell Distribution Width 18.7 % (11.8-14.3); White Blood Cell 6.6 10^3/uL (4.4-10.8)
[2021-07-03 06:19] LABS: Basophils % (manual) 0 (0.0-2.0); Blast Cells 0; Metamyelocytes % 0; Myelocytes % 0; Promyelocytes % 0; Reactive Lymphocytes 0
[2021-07-03 06:23] LABS: Albumin 1.6 g/dL (3.4-5.0); Calcium 7.7 mg/dL (8.5-10.1); Potassium 3.6 mmol/L (3.5-5.1)
[2021-07-03 06:25] LABS: INR 1.8 (0.9-1.15); Partial Thromboplastin Time 49.1 sec (23.6-33.0)
[2021-07-03 06:39] LABS: BUN/Creatinine Ratio 16.7; Bilirubin, Total 15.3 mg/dL (0.2-1.0); Total Protein 5.2 g/dL (6.4-8.2)
[2021-07-03 08:00] VITALS: BP 129/71
[2021-07-03 08:30] LABS: Band Neutrophils % (manual) 5; Lymphocytes % (manual) 11 (10.0-50.0); Monocytes % (manual) 11 (0-12)
[2021-07-03 08:31] LABS: Eosinophils % (manual) 8 (0-7)
[2021-07-03 09:57] LABS: Hepatitis B Surface Antibody Negative (Negative)
[2021-07-03] MEDS: APIXABAN 5 MG TAB PO SCH ×2 (09:57→23:05)
[2021-07-03] MEDS: cloNIDine HCL 0.1 MG TAB PO SCH ×2 (09:57→23:04)
[2021-07-03] MEDS: PANTOPRAZOLE 40 MG TAB PO SCH ×2 (09:57→23:05)
[2021-07-03] MEDS: SODIUM CHLOR 0.9% PF (SALINE LOCK) 10ML VIAL/SYR IV SCH ×2 (10:03→23:03)
[2021-07-03 10:23] LABS: Phosphorus 2.9 mg/dL (2.5-4.90)
[2021-07-03 10:34] LABS: Hepatitis A Total Antibody Negative (Negative)
[2021-07-03 12:00] VITALS: BP 138/81
[2021-07-03] MEDS: MORPHINE SULFATE INJ 2 MG/ml SYRG IV PRN (12:14)
[2021-07-03 13:12] LABS: Hepatitis C Antibody Negative (Negative)
[2021-07-03 13:17] LABS: Hepatitis A Ab IgM Negative; Hepatitis B Core IgM Negative
[2021-07-03 13:18] LABS: Hepatitis C Antibody Negative (Negative)
[2021-07-03 13:26] LABS: Hepatitis C Antibody Negative (Negative)
[2021-07-03 15:57] LABS: Protein, Urine 151.3 mg/dL (0.0-11.9)
[2021-07-03 16:00] VITALS: BP 159/86
[2021-07-03 16:16] LABS: Urine Bacteria NONE SEEN /hpf (None Seen); Urine Blood 1+ /uL (Negative); Urine Specific Gravity 1.008 (1.001-1.035); Urine WBC 1 /hpf (0 - 3)
[2021-07-03] MEDS ORDERED: methylPREDNISolone SOD SUCC 40 MG/ML VL IV ONE (22:00)
[2021-07-03] MEDS ORDERED: PHYTONADIONE (VIT K)10 MG/ML 1ML VIAL IV ONE (22:00)
[2021-07-03 22:02] VITALS: BP 153/86
[2021-07-03] MEDS ORDERED: phytonadione 10 MG in SODIUM CHL 0.9% 50 ML IV ONE (22:45)
[2021-07-03] MEDS ORDERED: phytonadione 0 ML ONE (22:52)
[2021-07-04] MEDS: ACCU-CHEK COMFORT CURVE STRIP VI SCH ×4 (00:10→18:38)
[2021-07-04] MEDS: cloNIDine HCL 0.1 MG TAB PO SCH ×3 (00:22→21:48)
[2021-07-04] MEDS: SODIUM CHLORIDE 0.9% 1,000 ML IV SCH ×3 (00:27→14:31)
[2021-07-04] MEDS: InsuLIN REG 1unit/0.01ml Soln (100units/ml) SC SCH ×4 (00:33→18:48)
[2021-07-04] MEDS: MORPHINE SULFATE 4 MG/ML SYR/VIAL IV PRN ×4 (04:14→21:54)
[2021-07-04 05:02] VITALS: BP 142/82
[2021-07-04 06:03] LABS: BUN/Creatinine Ratio 15.4; Calcium 7.9 mg/dL (8.5-10.1); Potassium 4.3 mmol/L (3.5-5.1)
[2021-07-04 06:51] LABS: Hematocrit 29.1 % (41.0-53.0); Mean Corpuscular Hemoglobin 27.5 pg (28.0-32.0); Mean Corpuscular Hgb Conc. 34.3 g/dL (32.0-36.0); Mean Corpuscular Volume 80.3 fL (80.0-100.0); Red Blood Cells 3.62 10^6/uL (4.5-5.90); Red Cell Distribution Width 18.8 % (11.8-14.3); White Blood Cell 5.3 10^3/uL (4.4-10.8)
[2021-07-04 07:16] LABS: Basophils % (manual) 0 (0.0-2.0); Blast Cells 0; Metamyelocytes % 0; Myelocytes % 0; Promyelocytes % 0; Reactive Lymphocytes 0
[2021-07-04 07:50] LABS: Band Neutrophils % (manual) 10; Eosinophils % (manual) 2 (0-7); Lymphocytes % (manual) 14 (10.0-50.0); Monocytes % (manual) 2 (0-12)
[2021-07-04 09:00] VITALS: BP 127/67
[2021-07-04] MEDS: SODIUM CHLOR 0.9% PF (SALINE LOCK) 10ML VIAL/SYR IV SCH ×2 (10:00→21:47)
[2021-07-04] MEDS: PANTOPRAZOLE 40 MG TAB PO SCH ×2 (10:09→21:48)
[2021-07-04] MEDS: APIXABAN 5 MG TAB PO SCH ×2 (10:09→21:48)
[2021-07-04 13:00] VITALS: BP 147/86
[2021-07-04 15:10] LABS: Albumin 1.4 g/dL (3.4-5.0); Potassium 4.5 mmol/L (3.5-5.1)
[2021-07-04 15:26] LABS: BUN/Creatinine Ratio 19.1; Bilirubin, Total 16.8 mg/dL (0.2-1.0); Total Protein 5.2 g/dL (6.4-8.2)
[2021-07-04 16:52] VITALS: BP 139/78
[2021-07-04] MEDS ORDERED: methylPREDNISolone SOD SUCC 40 MG/ML VL IV ONE (21:00)
[2021-07-04] MEDS ORDERED: phytonadione 10 MG in SODIUM CHL 0.9% 50 ML IV ONE (21:00)
[2021-07-04] MEDS: DOCUSATE SOD 100 MG CAP PO PRN (21:49)
[2021-07-04] MEDS: URSODIOL 300 MG CAP PO SCH (21:57)
[2021-07-04 22:00] VITALS: BP 133/80
[2021-07-05] MEDS: ACCU-CHEK COMFORT CURVE STRIP VI SCH ×5 (01:24→23:49)
[2021-07-05] MEDS: InsuLIN REG 1unit/0.01ml Soln (100units/ml) SC SCH ×5 (01:25→23:49)
[2021-07-05] MEDS: SODIUM CHLORIDE 0.9% 1,000 ML IV SCH ×3 (01:29→15:58)
[2021-07-05] MEDS: MORPHINE SULFATE 4 MG/ML SYR/VIAL IV PRN ×4 (03:18→21:26)
[2021-07-05 05:00] VITALS: BP 129/78
[2021-07-05 08:18] LABS: Hemoglobin 9.6 g/dL (13.5-17.5)
[2021-07-05 08:20] LABS: Hematocrit 28.6 % (41.0-53.0); Mean Corpuscular Hemoglobin 27.5 pg (28.0-32.0); Mean Corpuscular Hgb Conc. 33.6 g/dL (32.0-36.0); Mean Corpuscular Volume 81.6 fL (80.0-100.0); Red Cell Distribution Width 19.5 % (11.8-14.3); White Blood Cell 6.7 10^3/uL (4.4-10.8)
[2021-07-05 08:30] LABS: INR 1.05 (0.9-1.15)
[2021-07-05 08:43] LABS: Albumin 1.5 g/dL (3.4-5.0); Calcium 7.9 mg/dL (8.5-10.1); Potassium 4.7 mmol/L (3.5-5.1)
[2021-07-05 08:44] LABS: Basophils % (manual) 0 (0.0-2.0); Blast Cells 0; Eosinophils % (manual) 0 (0-7); Myelocytes % 0; Promyelocytes % 0; Reactive Lymphocytes 0
[2021-07-05 08:58] LABS: Bilirubin, Total 15.5 mg/dL (0.2-1.0); Total Protein 5.4 g/dL (6.4-8.2)
[2021-07-05 08:59] VITALS: BP 114/78
[2021-07-05 09:00] LABS: BUN/Creatinine Ratio 20.9
[2021-07-05 09:15] LABS: Band Neutrophils % (manual) 5; Lymphocytes % (manual) 7 (10.0-50.0); Metamyelocytes % 1; Monocytes % (manual) 10 (0-12)
[2021-07-05] MEDS: SODIUM CHLOR 0.9% PF (SALINE LOCK) 10ML VIAL/SYR IV SCH ×2 (10:47→21:27)
[2021-07-05] MEDS: URSODIOL 300 MG CAP PO SCH ×2 (10:47→21:26)
[2021-07-05] MEDS: cloNIDine HCL 0.1 MG TAB PO SCH ×2 (10:47→21:27)
[2021-07-05] MEDS: APIXABAN 5 MG TAB PO SCH ×2 (10:48→21:27)
[2021-07-05] MEDS: PANTOPRAZOLE 40 MG TAB PO SCH ×2 (10:48→21:27)
[2021-07-05 14:00] VITALS: BP 125/70
[2021-07-05 17:00] VITALS: BP 145/64
[2021-07-05 21:31] VITALS: BP 156/83
[2021-07-05] MEDS ORDERED: FUROSEMIDE 20 MG/2 ML VIAL IV ONE (21:45)
[2021-07-06] MEDS: MORPHINE SULFATE 4 MG/ML SYR/VIAL IV PRN ×3 (02:29→16:08)
[2021-07-06 05:00] VITALS: BP 134/78
[2021-07-06] MEDS: InsuLIN REG 1unit/0.01ml Soln (100units/ml) SC SCH ×3 (06:19→18:00)
[2021-07-06] MEDS: ACCU-CHEK COMFORT CURVE STRIP VI SCH ×3 (06:26→18:00)
[2021-07-06 08:07] LABS: Potassium 3.7 mmol/L (3.5-5.1)
[2021-07-06 08:08] LABS: Hemoglobin 9.1 g/dL (13.5-17.5)
[2021-07-06 08:09] LABS: Hematocrit 26.5 % (41.0-53.0); Mean Corpuscular Hemoglobin 28.2 pg (28.0-32.0); Mean Corpuscular Hgb Conc. 34.4 g/dL (32.0-36.0); Mean Corpuscular Volume 81.8 fL (80.0-100.0); Red Blood Cells 3.24 10^6/uL (4.5-5.90); Red Cell Distribution Width 19.7 % (11.8-14.3); White Blood Cell 8.2 10^3/uL (4.4-10.8)
[2021-07-06 08:10] LABS: BUN/Creatinine Ratio 18.5; Calcium 7.6 mg/dL (8.5-10.1)
[2021-07-06 08:29] LABS: Basophils % (manual) 0 (0.0-2.0); Blast Cells 0; Metamyelocytes % 0; Myelocytes % 0; Promyelocytes % 0; Reactive Lymphocytes 0
[2021-07-06 09:00] VITALS: BP 134/75
[2021-07-06 09:04] LABS: Band Neutrophils % (manual) 18; Eosinophils % (manual) 6 (0-7); Lymphocytes % (manual) 25 (10.0-50.0); Monocytes % (manual) 6 (0-12)
[2021-07-06] MEDS: APIXABAN 5 MG TAB PO SCH ×2 (09:36→20:58)
[2021-07-06] MEDS: cloNIDine HCL 0.1 MG TAB PO SCH ×2 (09:37→21:00)
[2021-07-06] MEDS: methylPREDNISolone SOD SUCC 40 MG/ML VL IV SCH (09:38)
[2021-07-06] MEDS: PANTOPRAZOLE 40 MG TAB PO SCH ×2 (09:39→20:58)
[2021-07-06] MEDS: URSODIOL 300 MG CAP PO SCH ×2 (09:43→20:58)
[2021-07-06] MEDS: SODIUM CHLOR 0.9% PF (SALINE LOCK) 10ML VIAL/SYR IV SCH ×2 (10:00→21:01)
[2021-07-06 13:00] VITALS: BP 132/66
[2021-07-06] MEDS ORDERED: PANT40T PO (15:47)
[2021-07-06] MEDS ORDERED: URSO300C9 PO (15:47)
[2021-07-06] MEDS ORDERED: APIX5TAB PO (15:47)
[2021-07-06] MEDS ORDERED: PRED20TA2 PO (15:49)
[2021-07-06] MEDS ORDERED: INSREGI SC (15:49)
[2021-07-06 16:48] VITALS: BP 152/85
[2021-07-06] MEDS ORDERED: INSULIN LANTUS (GLARGINE) 1 /0.01ml (100units/ml) SC STA (18:25)
[2021-07-06 19:18] LABS: Albumin 1.7 g/dL (3.4-5.0); Calcium 7.9 mg/dL (8.5-10.1); Potassium 4.9 mmol/L (3.5-5.1)
[2021-07-06 19:33] LABS: BUN/Creatinine Ratio 21.2; Bilirubin, Total 11.1 mg/dL (0.2-1.0); Total Protein 5.7 g/dL (6.4-8.2)
[2021-07-06] MEDS: MORPHINE SULFATE INJ 2 MG/ml SYRG IV PRN (21:00)
[2021-07-06 21:46] VITALS: BP 149/83
[2021-07-07] MEDS: InsuLIN REG 1unit/0.01ml Soln (100units/ml) SC SCH ×4 (00:11→18:00)
[2021-07-07] MEDS: ACCU-CHEK COMFORT CURVE STRIP VI SCH ×4 (00:14→18:00)
[2021-07-07] MEDS: MORPHINE SULFATE INJ 2 MG/ml SYRG IV PRN ×2 (02:25→13:30)
[2021-07-07 05:13] VITALS: BP 154/85
[2021-07-07 09:03] VITALS: BP 152/87
[2021-07-07] MEDS: SODIUM CHLOR 0.9% PF (SALINE LOCK) 10ML VIAL/SYR IV SCH (10:00)
[2021-07-07] MEDS: URSODIOL 300 MG CAP PO SCH (10:00)
[2021-07-07] MEDS: methylPREDNISolone SOD SUCC 40 MG/ML VL IV SCH (10:12)
[2021-07-07] MEDS: APIXABAN 5 MG TAB PO SCH (10:13)
[2021-07-07] MEDS: cloNIDine HCL 0.1 MG TAB PO SCH (10:13)
[2021-07-07] MEDS: PANTOPRAZOLE 40 MG TAB PO SCH (10:14)
[2021-07-07] MEDS: DOCUSATE SOD 100 MG CAP PO PRN (10:14)
[2021-07-07 14:01] VITALS: BP 176/100
[2021-07-07 17:00] VITALS: BP 161/93
[2021-07-07] MEDS ORDERED: INSULIN LANTUS (GLARGINE) 1 /0.01ml (100units/ml) SC SCH ×2 (17:45→18:00)
[2021-07-07 17:52] VITALS: BP 161/93
[2021-07-07 19:55] LABS: Albumin 1.8 g/dL (3.4-5.0); Calcium 7.9 mg/dL (8.5-10.1); Potassium 4.4 mmol/L (3.5-5.1)
[2021-07-07 20:30] VITALS: BP 158/97
[2021-07-07 20:37] LABS: BUN/Creatinine Ratio 27.2; Bilirubin, Total 6.5 mg/dL (0.2-1.0); Total Protein 5.9 g/dL (6.4-8.2)
[2021-07-08] MEDS ORDERED: predniSONE 20 MG TAB PO SCH (10:00)
== END 2021-07-07 20:23 | disposition home health service (06) | DRG 383 ==
LOC: ER 05:33 → TELE 15:57 → TELE-EAST 20:39
PROVIDERS: ADMIT Hospitalist; ATTEND Hospitalist
PROC: 02HV33Z Insertion of Infusion Device into Superior Vena Cava, Percutaneous Approach (ICD-10-PCS; principal; 2021-07-01)
PROC: B548ZZA Ultrasonography of Superior Vena Cava, Guidance (ICD-10-PCS; 2021-07-01)
DX: L03.116 Cellulitis of left lower limb (principal); N17.0 Acute kidney failure with tubular necrosis; M72.6 Necrotizing fasciitis; I82.431 Acute embolism and thrombosis of right popliteal vein; D68.9 Coagulation defect, unspecified; E87.1 Hypo-osmolality and hyponatremia; D63.8 Anemia in other chronic diseases classified elsewhere; E88.89 Other specified metabolic disorders; E11.22 Type 2 diabetes mellitus with diabetic chronic kidney disease; N40.0 Benign prostatic hyperplasia without lower urinary tract symptoms; L02.612 Cutaneous abscess of left foot; Z20.822 Contact with and (suspected) exposure to COVID-19; N18.9 Chronic kidney disease, unspecified; F17.210 Nicotine dependence, cigarettes, uncomplicated; F41.9 Anxiety disorder, unspecified; S91.302A Unspecified open wound, left foot, initial encounter; X58.XXXA Exposure to other specified factors, initial encounter; E88.09 Other disorders of plasma-protein metabolism, not elsewhere classified; R17 Unspecified jaundice; R74.01 Elevation of levels of liver transaminase levels; T45.515A Adverse effect of anticoagulants, initial encounter; I13.10 Hypertensive heart and chronic kidney disease without heart failure, with stage 1 through stage 4 chronic kidney disease, or unspecified chronic kidney disease; Z82.49 Family history of ischemic heart disease and other diseases of the circulatory system; Z83.3 Family history of diabetes mellitus; Z89.412 Acquired absence of left great toe; Z91.19 Patient's noncompliance with other medical treatment and regimen; Y92.89 Other specified places as the place of occurrence of the external cause; Y93.89 Activity, other specified; Y99.8 Other external cause status; Z79.4 Long term (current) use of insulin
CPT/HCPCS: 36415; 36569; 71045; 73700; 73718; 74177; 74181; 76705; 76775; 78226; 80048; 80053; 80074; 80307; 81001; 82306; 82570; 82962; 83690; 83735; 83935; 83970; 84100; 84156; 84300; 85007; 85027; 85610; 85652; 85730; 86141; 86703; 86704; 86706; 86708; 86803; 87077; 87186; 87205; 87340; 93970; 96365; 96367; 96372; 99291; G0378; J1450; J1815; J2405; J2543; J3430; J3490